=== PATIENT | male | born 1995 | race Two or more races ===

== ENCOUNTER 2025-04-20 17:27 | Emergency (ER) | payer BC, OTHER ==
[~2025-04-20] VITALS: Ht 162.6 cm; Wt 74.5 kg
--- NOTE | 2025-04-20 17:40 | ED.PDOC ---
HPI Comments 29 year old male presents to the ED with a chief compliant of chest pain onset today (04/20/25) about 30 minutes ago. Patient states he was taking a shower when he began experiencing LT sided chest pain, described as a pressure sensation. He is also experiencing numbness/tingling radiates through whole body. Patient noticed he feels anxious, has experienced similar anxiety attacks in the past. He has been under stress recently, his was born on [birth year], has not been sleeping the past few nights. Patient has PMHx anxiety, HTN. Denies shortness of breath, dizziness, nausea, vomiting, diarrhea, headache, dizziness. No other symptoms or modifying factors present at this time. Time Seen by MD: 17:35 Reviewed Notes: Medications, Allergies Allergies: Coded Allergies: NO KNOWN ALLERGIES (Unverified , 04/20/25) Home Meds Active Scripts Hydroxyzine HCl (Hydroxyzine Hydrochloride) 25 Mg Tab, 1-2 TAB PO Q6HP PRN, #30 TAB prn anxiety Prov:ANGEL HWANG MD 04/20/25 Information Source: Patient Mode of Arrival: Ambulatory Severity: Moderate Timing: Minutes Duration: Since onset Prehospital treatment: None Location: Chest (L) Radiation: No Radiation Quality: Pressure Onset: At Rest Cardiac Risk Factors: None PE Risk Factors: None History of: None Modifying Factors: Nothing Past Medical History PAST MEDICAL HISTORY: Anxiety, HTN Surgical History: Denies all surgeries Family History Family History: No family hx of Heart sharmaine, Family hx of DM Family History (Other): Denies family history of VTE Social History Smoker: Non-Smoker Alcohol: Denies ETOH Use Drugs: Denies Drug Use Lives In: Home All Other Systems: Reviewed and Negative (as per HPI) Physical Exam General Appearance: Mild Distress HEENT: Other (Pupils and face symmetric. Moist mucous membranes.) Neck: Full Range of Motion, Normal Inspection Respiratory: Chest Non-Tender, Lungs Clear, No Accessory Muscle Use, No Respiratory Distress, Normal Breath Sounds Cardiovascular: No Edema, No JVD, Tachycardia Breast Exam: Deferred Gastrointestinal: Non Tender, Soft Genitalia: Deferred Pelvic: Deferred Rectal: Deferred Extremities: Normal inspection, Normal range of motion, Non-tender, No pedal edema Neurologic: Alert (Oriented x4), Other (Appears anxious. Ambulatory.) Cerebellar Function: NOT DONE Reflexes: NOT DONE Skin: Dry, Normal Color, Warm Lymphatic: NOT DONE EKG EKG : Comments Sinus tach, rate 111, normal intervals, right axis deviation, normal QRS, nonspecific T change, occasional PACs. Was a procedure done? Was a procedure done?: No CP Differential Dx Differential Diagnosis: Angina, Anxiety / Panic Attack, UT, Pulmonary Embolus Differential Diagnosis: CHF Differential Diagnosis: Chest Wall Pain, Esophageal reflux/spasm, Gastritis, Pericarditis, Pneumonia X-Ray, Labs, Meds, VS Vital Signs Date Time Temp Pulse Resp B/P (MAP) Pulse Ox O2 Delivery O2 Flow Rate FiO2 04/20/25 20:06 94 18 97 Room Air 04/20/25 20:06 98.1 94 18 140/69 (92) 97 98.1 04/20/25 17:30 111 04/20/25 17:28 98.4 115 20 170/77 (108) 99 98.4 Lab Test 04/20/25 18:43 04/20/25 17:39 Range/Units Troponin I High Sensitivity 10 8 </=54 ng/L White Blood Count 12.3 H 4.4-10.8 10^3/uL Red Blood Count 6.31 H 4.5-5.90 10^6/uL Hemoglobin 18.1 H 13.5-17.5 g/dL Hematocrit 52.3 41.0-53.0 % Mean Corpuscular Volume 82.9 80.0-100.0 fL Mean Corpuscular Hemoglobin 28.7 28.0-32.0 pg Mean Corpuscular Hemoglobin Concent 34.7 32.0-36.0 g/dL Red Cell Distribution Width 13.3 11.8-14.3 % Platelet Count 269 140-450 10^3/uL Mean Platelet Volume 8.9 6.9-10.8 fL Neutrophils (%) (Auto) 68.7 37.0-80.0 % Lymphocytes (%) (Auto) 23.2 10.0-50.0 % Monocytes (%) (Auto) 7.0 0.0-12.0 % Eosinophils (%) (Auto) 0.7 0.0-7.0 % Basophils (%) (Auto) 0.4 0.0-2.0 % Neutrophils # (Auto) 8.5 1.6-8.6 10 ^3/uL Lymphocytes # (Auto) 2.9 0.4-5.4 10 ^3/uL Monocytes # (Auto) 0.9 0-1.3 10 ^3/uL Eosinophils # (Auto) 0.1 0-0.8 10 ^3/uL Basophils # (Auto) 0.1 0-0.2 10 ^3/uL Nucleated Red Blood Cells 0.3 % Sodium Level 140 136-145 mmol/L Potassium Level 3.9 3.5-5.1 mmol/L Chloride Level 106 98-107 mmol/L Carbon Dioxide Level 20 20-31 mmol/L Anion Gap 14 5-15 Blood Urea Nitrogen 11 9-23 mg/dL Creatinine 1.02 0.700-1.30 mg/dL Glomerular Filtration Rate Calc 103 >90 mL/min BUN/Creatinine Ratio 10.8 10.0-20.0 Serum Glucose 136 H 74-106 mg/dL Calcium Level 10.8 H 8.7-10.4 mg/dL B-Type Natriuretic Peptide 1.92 0-100 pg/mL PROCEDURE(s): CXRP - CHEST PORTABLE REASON: cp ORDER NUMBER(s): [id number], ACCESSION NUMBER(s): [id number] CHEST RADIOGRAPH Indication: cp Technique: Single frontal view of the chest was obtained COMPARISON: None FINDINGS: Lines and Tubes: None Lungs: Clear Pleura: No effusion. No pneumothorax. Cardiomediastinal contours: Unremarkable Bones: Unremarkable IMPRESSION: 1. No acute disease. X-Ray, Labs, Meds, VS Comment 29-year-old male with a history of hypertension and anxiety brought in by family complaining of chest pain, palpitations and body tingling/numbness Vitals remarkable for heart rate 115 Exam remarkable for tachycardia and anxious appearance Rhythm strip independently interpreted by me: Sinus tach, rate 111, occasional PACs Chest x-ray unremarkable CBC remarkable for WBC 12.3, basic metabolic panel unremarkable, 2 serial troponins negative, BNP unremarkable Patient treated with the following in the ED: Ativan 1 mg p.o. On re-evaluation, patient is no longer tachycardic, and other vitals were stable. He states his symptoms have improved. He does not appear septic. Leukocytosis is likely a stress reaction and tachycardia was likely due to anxiety. PERC criteria are satisfied and heart score is 2. Hospitalization was considered, however patient had rapid improvement of symptoms with treatment in the ED, and I no longer feel hospitalization is necessary. Patient now appears stable for discharge with close outpatient follow-up with his primary physician. Rx hydroxyzine Time of 1ST Reevaluation: 18:05 Reevaluation 1ST: Unchanged Time of 2ND Reevaluation: 19:09 Reevaluation 2ND: Improved Patient Education/Counseling: Diagnosis, Treatment, Prognosis Family Education/Counseling: No Family Present Sepsis Recent Procedure: No On Antibiotic Therapy: No Respiratory Rate >20: No Heart Rate >90: Yes Temp<36 C (96.8 F) or >38.3 C: No SBP <90 or MAP <65 mmHG: No New Acute Mental Status Change: No Is the patient on CPAP, BIPAP,: No IV fluid given: No Departure 1 Departure Time of Disposition: 19:10 Impression: Primary Impression: Chest pain with low risk for cardiac etiology Additional Impression: Anxiety Disposition: HOME / SELF CARE / HOMELESS Condition: Stable Additional Instructions: Your blood tests, including screening test for heart attack and heart failure, were unremarkable. Your chest x-ray was normal. Your EKG was unremarkable except for a rapid heart rate, which may have been due to anxiety. I have prescribed medication for your symptoms. Follow-up with your primary doctor in 1-2 days. Return to ER for persistent or worsening symptoms. e-Prescriptions Hydroxyzine HCl (Hydroxyzine Hydrochloride) 25 Mg Tab 1-2 TAB PO Q6HP PRN, #30 TAB prn anxiety Prov: ANGEL HWANG MD 04/20/25 Discharged With: Relative Critical Care Note Critical Care Time?: No Stability Stability form required: No Heart Score Heart Score: Heart Score Response (Comments) Value History Slightly Suspicious 0 EKG Repolarization Disturb 1 Age <45 0 Risk Factors 1 or 2 risk factors 1 Troponin Normal limit 0 Total 2 I personally scribed for ANGEL WHANG MD ([email or web address]) on 04/20/25 at 17:40. Electronically submitted by Avani Loza ([email or web address]). ANGEL HWANG MD Apr 20, 2025 17:40
[2025-04-20 17:55] LABS: Basophils % (auto) 0.4 % (0.0-2.0); Eosinophils # (auto) 0.1 10 ^3/uL (0-0.8); Hematocrit 52.3 % (41.0-53.0); Hemoglobin 18.1 g/dL (13.5-17.5); Mean Corpuscular Hemoglobin 28.7 pg (28.0-32.0); White Blood Cell 12.3 10^3/uL (4.4-10.8)
[2025-04-20 18:00] LABS: Basophils # (auto) 0.1 10 ^3/uL (0-0.2); Eosinophils % (auto) 0.7 % (0.0-7.0); Lymphocytes # (auto) 2.9 10 ^3/uL (0.4-5.4); Lymphocytes % (auto) 23.2 % (10.0-50.0); Mean Corpuscular Hgb Conc. 34.7 g/dL (32.0-36.0); Mean Corpuscular Volume 82.9 fL (80.0-100.0); Monocytes # (auto) 0.9 10 ^3/uL (0-1.3); Neutrophils # (auto) 8.5 10 ^3/uL (1.6-8.6); Neutrophils % (auto) 68.7 % (37.0-80.0); Nucleated Red Blood Cells % 0.3 %; Platelet Count (auto) 269 10^3/uL (140-450); Red Blood Cells 6.31 10^6/uL (4.5-5.90); Red Cell Distribution Width 13.3 % (11.8-14.3)
--- NOTE | 2025-04-20 18:02 | DVH ---
CHEST RADIOGRAPH Indication: cp Technique: Single frontal view of the chest was obtained COMPARISON: None FINDINGS: Lines and Tubes: None Lungs: Clear Pleura: No effusion. No pneumothorax. Cardiomediastinal contours: Unremarkable Bones: Unremarkable IMPRESSION: 1. No acute disease.
[2025-04-20 18:06] LABS: Chloride 106 mmol/L (98-107); Potassium 3.9 mmol/L (3.5-5.1); Sodium 140 mmol/L (136-145)
[2025-04-20 18:07] LABS: Anion Gap 14 (5-15); Carbon Dioxide 20 mmol/L (20-31)
[2025-04-20 18:12] LABS: BUN/Creatinine Ratio 10.8 (10.0-20.0); Blood Urea Nitrogen 11 mg/dL (9-23)
[2025-04-20 18:26] LABS: Calcium 10.8 mg/dL (8.7-10.4); Glucose 136 mg/dL (74-106)
[2025-04-20] MEDS ORDERED: HYDR-4924 PO (19:13)
[2025-04-20] MEDS: LORazepam 0.5 MG TAB PO ONE (19:51)
[2025-04-20 20:06] VITALS: BP 140/69; PULSE 94; RESP 18; TEMP 98.1; O2SAT 97
--- NOTE | 2025-04-21 13:45 | ECG ---
[facility] Test Date: 2025-04-20 Test Time: 17:30:53 Pat Name: MICHI FLORES Department: ER Room: Gender: M Tray Packer: GP : [id number] Requested By: PEDRO QUINTERO Order Number: [id number] Reading MD: Brennan Nieves Measurements Intervals [place] Rate: 111 P: 72 WI: 126 QRS: 131 QRSD: 100 T: -11 QT: 273 QTc: 371 Interpretive Statements Sinus tachycardia Atrial premature complex Right axis deviation Nonspecific repol abnormality, inferior leads Borderline ST elevation, lateral leads Electronically Signed On 04-21-2025 14:59:23 PDT by Brennan Nieves Please click the below link to view image of tracing.
== END 2025-04-20 20:07 | disposition home or self-care (01) ==
LOC: ER 17:27
DX: R07.89 Other chest pain (principal); F41.9 Anxiety disorder, unspecified; I10 Essential (primary) hypertension; Z79.899 Other long term (current) drug therapy
CPT/HCPCS: 36415; 71045; 80048; 83880; 84484; 85025; 93005